=== PATIENT | female | born 1955 | race American Indian/Alaskan Native ===

== ENCOUNTER 2019-04-07 10:12 | Emergency (ER) | payer OTHER ==
[2019-04-07 10:16] VITALS: BP 151/84
--- NOTE | 2019-04-07 11:30 | Emergency Department Report ---
Chief Complaint: Urogenital-Female Stated Complaint: STD/ITCHING/BURNING Time Seen by Provider: 04/07/19 10:54 - HPI History of Present Illness: Mr. Badillo presents with vaginal itch. She was concerned that she may have genital herpes. Her male partner was evaluated and diagnosed with genital herpes recently. She has vaginal itch. She does not have any lesions or bumps. She desired clarifcation of recent labs obtained at [facility]. She was evaluated. Tests were negative for HIV syphilis and gonorrhea. Medical screening exam performed. Further intervention in examination not necessary. She needed clarification education. Discharged home without any further workup or testing. No evidence of acute emergent illness. No indication of pelvic inflammatory disease. She was given verbal and history educated regarding the diagnosis of genital herpes. Recommended [id number] Monistat for possible yeast infection - Exam Vital Signs: Vital Signs 04/07/19 10:15 Temperature 97.8 F Pulse Rate 92 H Respiratory 18 Rate Blood Pressure 151/84 O2 Sat by Pulse 98 Oximetry MSE screening note: Focused history and physical exam performed. Due to findings the following was ordered: ED Disposition for MSE Clinical Impression: Vaginitis Disposition: Z-07 MED SCREENING EXAM-LEFT Is pt being admited?: No Does the pt Need Aspirin: No Condition: Stable Instructions: Vaginitis (ED)
== END 2019-04-07 12:00 | disposition left against medical advice (07) ==
LOC: ED 10:12
DX: N76.0 Acute vaginitis (principal)

== ENCOUNTER 2019-04-27 06:25 | Emergency (ER) | payer OTHER ==
[2019-04-27 06:34] VITALS: BP 155/83
[2019-04-27 07:23] LABS: Bacteria,Urine 1+ /HPF (Negative); Bilirubin,Urine NEG (Negative); Blood,Urine SM (Negative); Color,Urine Yellow (Yellow); Mucus,Urine 2+ /HPF; Protein,Urine <15 mg/dL mg/dL (Negative); Urobilinogen,Urine < 2.0 mg/dL (<2.0)
[2019-04-27] MEDS ORDERED: ZITHROMAX PO ONE (07:26)
[2019-04-27] MEDS ORDERED: ROCEPHIN IM ONE (07:26)
--- NOTE | 2019-04-27 07:27 | Emergency Department Report ---
ED Dysuria HPI - HPI Chief Complaint: Urogenital-Female Stated Complaint: VAG IRRITATION Duration: 1 Day Symptoms: Dysuria: No, Frequency: No, Suprapubic Pain: No, Flank Pain: No, Fever: No, Hematuria: No, Abdominal Pain: No, Previous UTI's: No Other History: Patient is a 64-year-old female comes to the ER to complaining of vaginal irritation. She has had an encounter with a 39-year-old male who was recently treated for STDs. She is given me the name of the person that states that he was treated here but she does not know his date of . Given this exposure patient is requesting empiric treatment. ED Review of Systems ROS: Stated complaint: VAG IRRITATION Other details as noted in HPI Comment: All other systems reviewed and negative ED Past Medical Hx - Past Medical History Previous Medical History?: No - Surgical History Past Surgical History?: No - Social History Smoking Status: Never Smoker Substance Use Type: None - Medications Home Medications: Home Medications Medication Instructions Recorded Confirmed Last Taken Type Fluconazole [Diflucan TAB] 150 mg PO ONCE #1 tablet 04/27/19 Unknown Rx Dysuria Exam - Exam General: Vital signs noted. No distress. Alert and acting appropriately. Exam: Yes Moist Mucous Membranes, No CVA Tenderness, No Abdominal Tenderness, No Rigidity or Guarding Labs: Lab Results 04/27/19 Range/Units 07:10 Urine Color Yellow (Yellow) Urine Turbidity Slightly-cloudy (Clear) Urine pH 5.0 (5.0-7.0) Ur Specific [place] 1.020 (1.003-1.030) Urine Protein <15 mg/dl (Negative) mg/dL Urine Glucose (UA) Neg (Negative) mg/dL Urine Ketones Neg (Negative) mg/dL Urine Blood Sm (Negative) Urine Nitrite Neg (Negative) Urine Bilirubin Neg (Negative) Urine Urobilinogen < 2.0 (<2.0) mg/dL Ur Leukocyte Esterase Lg (Negative) Urine WBC (Auto) 23.0 H (0.0-6.0) /HPF Urine RBC (Auto) 3.0 (0.0-6.0) /HPF U Epithel Cells (Auto) 3.0 (0-13.0) /HPF Urine Bacteria (Auto) 1+ (Negative) /HPF Urine Mucus 2+ /HPF ED Course Vital Signs 04/27/19 06:30 Temperature 98.4 F Pulse Rate 81 Respiratory 18 Rate Blood Pressure 155/83 O2 Sat by Pulse 100 Oximetry ED Medical Decision Making - Medical Decision Making here for STI exposure She describes her symptoms as itching. She has no abdominal pain. No CVA tenderness. No dysuria. No fever. Ambulatory and nontoxic. empiric treatment Vital Signs 04/27/19 06:30 Temperature 98.4 F Pulse Rate 81 Respiratory 18 Rate Blood Pressure 155/83 O2 Sat by Pulse 100 Oximetry Should be discharged home with [employer] follow-up. Critical care attestation.: If time is entered above; I have spent that time in minutes in the direct care of this critically ill patient, excluding procedure time. ED Disposition Clinical Impression: Possible exposure to STD, Vaginitis Disposition: DC-01 TO HOME OR SELFCARE Is pt being admited?: No Does the pt Need Aspirin: No Condition: Stable Instructions: Safe Sex (ED) Prescriptions: Fluconazole [Diflucan TAB] 150 mg PO ONCE #1 tablet Referrals: SUZI BELLAMY MD [Primary Care Provider] - 3-5 Days Time of Disposition: 07:26
[2019-04-27] MEDS ORDERED: ROCEPHIN 250 MG in NACL 0.9% 50 ML IV ONE (07:35)
[2019-04-27] MEDS ORDERED: XYLOCAINE 1% MPF 5 mL ONE (07:40)
[2019-04-27] MEDS ORDERED: XYLOCAINE 1% MPF 5 mL INFILTRATI ONE (07:50)
== END 2019-04-27 08:24 | disposition home or self-care (01) ==
LOC: ED 06:25
DX: N76.0 Acute vaginitis (principal)
CPT/HCPCS: 81001; 87086; 87591; 96372; 99283; J0696